=== PATIENT | born 1970 | race Caucasian/White ===

== ENCOUNTER → 2023-10-31 10:32 | Outpatient (BNVA) | payer MEDICARE, MEDICAID, SELFPAY | PROVIDERS: Referring Provider Nurse Practitioner Family; Visit Provider Internal Medicine | DX: E04.2 Nontoxic multinodular goiter (principal); E05.90 Thyrotoxicosis, unspecified without thyrotoxic crisis or storm | CPT/HCPCS: 83516; 84439; 84443; 84480; 86376; 86800; 99204 ==

== ENCOUNTER 2023-11-08 12:52 | Outpatient (CLI) | payer MEDICARE, MEDICAID, SELFPAY ==
--- NOTE | 2023-11-08 13:00 | NM_ITS ---
WS: [id number] NUCLEAR MEDICINE THYROID UPTAKE AND SCAN HISTORY: nodules COMPARISON: Thyroid ultrasound 09/07/2024 Radionucleotide: 106 uCi Iodine-123 sodium iodide capsule. Oral ingestion. Imaging performed at 24 hours post ingestion of capsule. Marker placed over the chin and suprasternal notch. Homogeneous symmetric distribution throughout the thyroid gland. No area of focal photopenia or incre ased uptake to suggest a hypo or hyperfunctioning nodule. Gland measures approximate 5 cm in length w hich is normal. Thyroid uptake at 24 hours: 73%. (Normal uptake at 24 hours 10-30%). IMPRESSION: 1. No photopenic nodules within either thyroid. The thyroid is markedly enlarged on the recent ultra sound but does not appear as significantly enlarged by thyroid uptake and scan. 2. Significant increased thyroid uptake at 24 hours, 73%.
== END 2023-11-08 12:53 | disposition home or self-care (01) ==
PROVIDERS: Visit Provider Internal Medicine
DX: Z53.9 Procedure and treatment not carried out, unspecified reason (principal)
CPT/HCPCS: 78014; 83516; 84439; 84443; 84480; 86376; 86800; 99204; A9516

== ENCOUNTER 2023-11-08 13:20 | Outpatient (CLI) | payer MEDICARE, MEDICAID, SELFPAY ==
--- NOTE | 2023-11-08 15:00 | US_ITS ---
WS: [id number] THYROID ULTRASOUND HISTORY: nodules COMPARISON: None available. Right lobe: 2.6 cm x 2.8 cm x 4.6 cm (w x ap x l). Volume: 16.2 cm3. Enlarged thyroid with heterogeneous parenchyma throughout. There is no discrete mass. There is increa sed vascularity diffusely throughout the gland. Left lobe: 2.2 cm x 2.2 cm x 4.6 cm (w x ap x l). Volume: 10.3 cm3. Enlarged thyroid with heterogeneous parenchyma throughout. No discrete mass. Diffuse increased vascul arity. Isthmus: 0.3 cm. IMPRESSION: 1. Enlarged heterogeneous gland with hyperemia. 2. Most likely due to acute Abel's thyroiditis.
== END 2023-11-08 13:21 | disposition home or self-care (01) ==
LOC: RAD 13:21
PROVIDERS: Visit Provider Internal Medicine
DX: E04.2 Nontoxic multinodular goiter (principal); R68.89 Other general symptoms and signs
CPT/HCPCS: 76536; 78014; A9516

== ENCOUNTER → 2025-07-11 10:22 | Outpatient (BNVA) | payer MEDICARE, MEDICAID, SELFPAY | PROVIDERS: PCP Nurse Practitioner Family; Visit Provider Internal Medicine | DX: E05.00 Thyrotoxicosis with diffuse goiter without thyrotoxic crisis or storm (principal); F41.9 Anxiety disorder, unspecified; R09.89 Other specified symptoms and signs involving the circulatory and respiratory systems | CPT/HCPCS: 99214 ==